=== PATIENT | male | born 1945 | race Caucasian/White ===

== ENCOUNTER 2020-12-30 15:48 | Inpatient (IN) | payer MEDICARE, SELFPAY ==
[2020-12-30] VITALS (11 sets, daily range): BP systolic 137–152; BP diastolic 68–102; PULSE 83–116; RESP 16–18; TEMP 36.6; O2SAT 89–98; BMI 25.8; BMI 23.1
--- NOTE | 2020-12-30 | IR_ITS ---
APPROVED REPORT Patient Location: [facility] Current Inspector: SEBASTIAN Umaña RT (R) PROCEDURES Left heart catheterization Left ventriculogram Selective coronary angiogram Drug-eluting stent deployment to the mid to distal left main artery extending into the proximal LAD - 1 stent to LM into LAD Drug-eluting stent deployment to the proximal to mid and distal LAD in a noncontiguous manner from the left main artery - 3 stents contiguous in LAD Drug-eluting stent deployment to the circumflex artery extending into the first obtuse marginal artery - 1 stent in ostia extending into OM1 Intravascular ultrasound of the left main artery and LAD INDICATION Acute inferior ST elevation myocardial infarction, Coronary artery disease, Informed consent was obtained prior to the procedure. COMPLICATIONS None Estimated Blood Loss: Less than 10 mls TECHNIQUE One percent lidocaine used to anesthetize the right anterior aspect of the wrist. The right radial artery was accessed via the Seldinger technique. A 6 Syriac sheath was placed in the right radial artery. 2.5 mg of verapamil, 800 mcg of nitroglycerin, 1mg Lidocaine and were given through the arterial sheath. A Poppa catheter was used to perform right coronary angiography and then left main coronary angiography. Choice PT extra-support wire was placed into the LAD and a 3 mm balloon was used to open the critical stenosis in the left main artery. Following this a 4 mm x 15 mm resolute Dayton stent was deployed at 20 antonia in the left main artery extending to the proximal LAD in order to immediately provide flow to the critical situation. The wire was placed into the distal LAD where predilatation was performed. A telescope guide support catheter was used to deliver a 2.75 x 38 mm resolute Dayton stent at 20 antonia. An additional 3 mm x 8 mm resolute Dayton stent was then placed proximal to this immediately adjacent to the first diagonal artery and deployed at 24 antonia. A 2.5 x 22 mm resolute Dayton stent was then placed distal to the 38 mm stent and deployed at 20 antonia. The balloon was brought back and dilated at 24 antonia up and down the LAD. Following this a 4.5 mm balloon was used to post dilate the left main artery stent. Choice PT extra-support wire was placed into the circumflex artery and first obtuse marginal artery where a 2 mm balloon was used to predilate the critical stenosis. Eventually a 2 mm x 22 mm resolute Rod stent was then placed in the left main artery extending into the circumflex artery and into the first obtuse marginal artery. This was deployed at 20 antonia. This was then postdilated with a 2.25 mm balloon. A 4.5 mm balloon was then placed back into the LAD left main artery to make sure none of the circumflex artery struts were impeding flow. Following this an intravascular ultrasound probe was advanced into the left main artery and LAD. An additional wire was placed back into the circumflex artery and a 2.25 mm compliant balloon was deployed at 20 antonia in the circumflex artery ostium in order to open the struts completely. A 5 mm x 12 mm noncompliant balloon was then placed into the left main artery extending into the LAD and deployed at 20 antonia to make sure none of the struts were encroaching upon the left main artery. After achieving excellent angiographic results the apparatus was removed the sheath was removed and hemostasis was achieved using TR banding patient was transferred to the postoperative stable addition ANGIOGRAPHIC RESULTS The left main artery Has a critical distal concentric 80% stenosis The left anterior descending artery Has a proximal concentric 80% stenosis between the large first diagonal artery and large first septal perforato
--- NOTE | 2020-12-30 15:52 | ECG_ITS ---
APPROVED REPORT Exam: Resting ECG HR:110 bpm ECG Measurements Heart Rate 110 AXES OH 164 P 54 QRSd 96 QRS 32 QT 332 T 123 QTc 449 Conclusion Sinus tachycardia Inferior-posterior infarct, possibly acute ACUTE [place] Consider right ventricular involvement in acute inferior infarct Abnormal ECG Electronically signed by : Jerome Goldberg, 12/30/2020 18:03:20
--- NOTE | 2020-12-30 15:56 | PC.NURSE ---
STEMI ALERT CALLED
--- NOTE | 2020-12-30 15:56 | PC.NURSE ---
PAGE TO CARDIOLOGY
--- NOTE | 2020-12-30 15:58 | PC.NURSE ---
RETURN CALL FROM CARDIOLOGY
--- NOTE | 2020-12-30 15:58 | HMH.EDCP ---
ED Disposition Clinical Impression: STEMI (ST elevation myocardial infarction) Qualifiers: Involved coronary artery: other inferior wall coronary artery Qualified Code(s): I21.19 - ST elevation (STEMI) myocardial infarction involving other coronary artery of inferior wall Disposition: Admitted As Inpatient Condition on Discharge: Serious Referrals: Rufus Sheehan [Primary Care Provider] - - Critical Care Critical Care Time: Yes Attestation: On , the high probability of a clinically significant, sudden or life threatening deterioration of the following system(s) required my full and direct attention, intervention and personal management. The time I documented below is in addition to time spent performing reported procedures but includes the following listed in this critical care notation. Total Critical Care Time: 30 Vital system(s) involved:: Circulatory Failure My critical care processes included: Assessment & monitoring of V/S, Initial and Re-exams, Data Review/Interpretation, Coordinating Care, Medication Orders and management Medical Decision Making - Medical Records Medical records reviewed: Yes: I reviewed the patient's medical records. - Chemo Inquiry Pt receiving controlled substance: No Orders (Tests/Meds): ED MEDICATIONS Discontinued Medications Generic Name Dose Route Start Last Admin Trade Name Freq PRN Reason Stop Dose Admin Heparin Sodium (Porcine) 8,100 unit 12/30/20 16:00 Heparin Sodium 5,000 Unit/Ml Vial IV 12/30/20 16:01 ONCE ONE ORDERS Category Date Time Status XR chest portable Stat Exams 12/30/20 16:02 Ordered Basic Metabolic Panel Stat Lab 12/30/20 16:02 Ordered Complete Blood Count Man Dif Stat Lab 12/30/20 16:01 Ordered Full Resp Panel w/COVID ([facility]) Routine Lab 12/30/20 16:02 Ordered Troponin I Q3H Lab 12/30/20 19:15 Ordered Troponin I Q3H Lab 12/30/20 22:15 Ordered Troponin I Stat Lab 12/30/20 16:01 Ordered - ECG Data Tracing #1 I reviewed this ECG and interpreted as documented below: Mild tachycardia to [address] elevation myocardial infarction with reciprocal depressions in V2 through V5. Ischemic changes: acute STEMI - Physician Consults Physician Consulted: Vinny Time: 16:11 Reason -: Cardiology Eval/Care Additional Consult: Wallace Reason -: Admission - ADAM Score for Stemi Age of Patient: 70-79 years old Heart Rate: 110-149 bpm Systolic Blood Pressure: 140-159 mmHg CHF Killip Class: I-No CHF Other Risk Factors: ST Segment Deviation Medical Decision Narrative: 75-year-old male who presents with acute chest pain. EKG demonstrates an inferior ST elevation myocardial infarction. Home Advisor was activated and he was given Brilinta as he took aspirin prior to arrival. He was also given 100/kg bolus of heparin. It was discussed with Dr. Casillas and admitted to Dr. Gonsalez for care after the Home Advisor. Patient remained stable throughout the duration of ED care and was admitted to the service. Chest Pain HPI - General Stated Complaint: L shoulder pain Chest discomfort Time Seen by Provider: 12/30/20 15:55 - History of Present Illness HPI narrative: Male has had chest pain into the left shoulder intermittently for the last 2 days. States that it was there when he woke up this morning he has had intermittent shortness of breath and states that the pain has been more persistent today. He took aspirin this morning 325 mg when he woke up and took it again this afternoon. He denies diaphoresis or nausea with the chest pain and that it self resolved last 2 days. Pain is 8 out of 10. [facility] History - Hepatitis A Screen Attestation statement:: This patient has been screened for Hepatitis A risk factors. ROS Obtained: Yes Systems reviewed as appropriate & no additional complaints Physical Exam - General General appearance: alert, in no apparent distress - Head Head exam: atraumatic, normocephalic - Eye Eye exa
--- NOTE | 2020-12-30 16:02 | XR_ITS ---
PROCEDURE: XR CHEST PORTABLE CLINICAL HISTORY: STEMI STEMI alert COMPARISON: No exams were available for comparison FINDINGS: The heart size is normal. There is some mild pulmonary venous prominence and there is some interstitial edema which may be due to acute cardiac decompensation. Overlying monitoring/defibrillator device present. No acute bony abnormalities. IMPRESSION: Minimal interstitial edema and mild pulmonary venous congestion with normal heart size which may be seen with acute cardiac decompensation Dictated by: Ramakrishna Conrad MD 12/30/2020 16:35 Ramakrishna Conrad MD in [place] 12/30/2020 16:35
[2020-12-30 16:07] LABS: MANUAL DIFFERENTIAL MANUAL DIFFERENTIAL (MANUAL DIFF)
[2020-12-30 16:10] LABS: Basophils # 0.1 K/mm3 (0-0.2); Basophils % 0.4 % (0.1-2.0); Eosinophils # 0.1 K/mm3 (0.0-0.4); Eosinophils % 1.1 % (0.1-12.0); Hematocrit 44.5 % (42.0-52.0); Hemoglobin 13.9 g/dL (14.1-18.0); Lymphocytes # 1.9 K/mm3 (0.7-4.5); Lymphocytes % 15.1 % (10-50); Mean Corpuscular HGB Conc 31.3 g/dL (31.8-35.4); Mean Corpuscular Hemoglobin 29.2 pg (27.0-31.2); Mean Corpuscular Volume 93.2 fl (80-94); Mean Platelet Volume 8.4 fl (7.4-10.4); Monocytes # 0.4 K/mm3 (0.1-1.0); Monocytes % 3.5 % (1.7-9.3); Neutrophils # 9.9 K/mm3 (1.8-7.8); Platelet Count 275 K/mm3 (142-424); Red Blood Count 4.77 M/mm3 (4.60-6.20); Red Cell Distribution Width 14.6 % (11.5-17.5); White Blood Count 12.3 K/mm3 (4.8-10.8)
--- NOTE | 2020-12-30 16:14 | PC.NURSE ---
TO VEST FINISHER PER STRETCHER
--- NOTE | 2020-12-30 16:16 | PC.NURSE ---
1613 PT TO HEADER SET UP OPERATOR
[2020-12-30 16:17] LABS: Adenovirus,PCR Not Detected (NotDetected); Anion Gap 14.2 mEq/L (5-15); Blood Urea Nitrogen 17 mg/dl (9-20); Bordetella Pertussis Not Detected (NotDetected); Calcium 9.7 mg/dl (8.4-10.2); Carbon Dioxide 25 mmol/L (22.0-30.0); Chlamydophila Pneumoniae, PCR Not Detected (NotDetected); Chloride 106 mmol/L (98-107); Coronavirus 19, PCR Not Detected (NotDetected); Coronavirus 229E Not Detected (NotDetected); Coronavirus NL63 Not Detected (NotDetected); Coronavirus OC43 Not Detected (NotDetected); Coronovirus HKU1,PCR Not Detected (NotDetected); Creatinine Clearance Estimated 54 mL/min (50-200); Estimated Glomerular Filt Rate 50 ml/min (>60); GFR (African American) 60 ML/MIN (>60); Glucose 306 mg/dl (74-100); Human Metapneumovirus Not Detected (NotDetected); Influenza A, PCR Not Detected (NotDetected); Influenza AH1, 2009 Not Detected (NotDetected); Influenza AH1, PCR Not Detected (NotDetected); Influenza AH3,PCR Not Detected (NotDetected); Influenza B, PCR Not Detected (NotDetected); Mycoplasma Pneumoniae, PCR Not Detected (NotDetected); Parainfluenza 1, PCR Not Detected (NotDetected); Parainfluenza 2, PCR Not Detected (NotDetected); Parainfluenza 3, PCR Not Detected (NotDetected); Parainfluenza 4, PCR Not Detected (NotDetected); Potassium 4.2 mmoL/L (3.5-5.1); Respiratory Syncytial Virus Not Detected (NotDetected); Rhinovirus/Enterovirus Not Detected (NotDetected); Sodium 141 mmol/L (136-145)
[2020-12-30 16:34] LABS: Troponin I 2.83 ng/ml (0.00-0.034)
[2020-12-30 16:58] LABS: Eosinophils % 1 % (0-3); Lymphocytes % 13 % (10-50); Monocytes % 5 % (2-9); Neutrophils % 78 % (42-76); Platelet Estimate Normal; RBC Morphology Normal; Total Cells Counted 100
[2020-12-30 18:07] LABS: Coronavirus 19 IgG Antibody Positive (Negative); Coronavirus 19 IgM Antibody Negative (Negative)
--- NOTE | 2020-12-31 07:32 | CA_ITS ---
APPROVED REPORT EXAM: Comprehensive 2D, Doppler, and color-flow Echocardiogram Superintendent Renting Managing: Kenyatta Oliveros RT(R) Ht: 5 ft 10 in Wt: 171lbs BSA: 1.95 BP: 115/56 mmHg Indications: CP, edema, hyperlipidemia, DM, SOB, CAD, cardiac cath yesterday with 5 stents placed, EF 20-25% on cath. 2D Dimensions LVOT 1.87 cm (M/F) 1.5-2.5 LVEF (Uriostegui's) 45.50 % M: 52 - 72 LV Volume 108.80 mL M: 62 - 150 LV Volume Index 55.79 mL/m2 M: 34 - 74 M-Mode Dimensions RVDd 2.31 cm (0.9-2.6) LA Diam 3.16 cm (1.9-4.0) LVDd 5.27 cm (3.5-5.7) Ao Diam 2.73 cm (2.0-3.7) LVDs 4.56 cm (3.5-5.7) IVSd 0.78 cm (0.6-1.1) PWd 0.78 cm (0.6-1.1) EF (Teich) 28.60% FS 13.50% EDV (Teich) 133.60 mL TAPSE 2.26 (<1.7) ESV (Teich) 95.40 mL LV Diastology E Decel Time 153.00 (160-240 msec) E/A Ratio 1.4 MED E' 6.40 (< 7 cm/sec) E'/MED E' Ratio 16.92 (>14) LAT E' 8.10 (<10 cm/sec) E/LAT E' Ratio 13.37 (>14) Aortic Valve LVOT Max 79.00 (70-110 cm/s) LVOT VTI 14.24 cm AoV Peak Roe. 168.00 (50-130 cm/s) AO Peak GR. 11.30 mmHg AO Mean GR. 5.60 (<5 mmHg) AO VTI 27.44 (18-25 cm) MOLLY (VTI) 1.43 (2.5-4.5 cm2) Mitral Valve MV E Max Roe. 108.00 (40-130 cm/s) MV A Velocity 75.00 (40-130 cm/s) E/A Ratio 1.45 MV Decel. Time 153.00 (160-240 ms) MV PHT 45.00 ms Left Ventricle Left atrium is mildly enlarged, left ventricle is normal size, mild concentric left ventricular hypertrophy, visually estimated ejection fraction 45 to 50% with no regional wall motion abnormality, endocardial surfaces are very poorly visualized. Grade 1 diastolic dysfunction seen without tissue Doppler evidence of left atrial pressure. Right Ventricle Right atrium and right ventricle are normal size and contractility. Aortic Valve Aortic valve is thickened and calcified without Doppler evidence of aortic stenosis, there is mild aortic insufficiency. Mitral Valve Mitral valve leaflets are minimally thickened, there is mild mitral regurgitation. Tricuspid Valve Tricuspid grossly normal, there is mild tricuspid regurgitation, tricuspid regurgitation jet close is inadequate for calculation of the right ventricular systolic pressure. Pulmonic Valve Pulmonic valve is poorly visualized. Great Vessels Aortic root is normal size. Pericardium No significant pericardial effusion noted. Conclusion 1. Mildly enlarged left atrium, normal left ventricular size, mild concentric left ventricular hypertrophy, visually estimated ejection fraction 45 to 50% with no obvious regional wall motion abnormality, endocardial surfaces are poorly visualized. Grade 1 diastolic dysfunction seen without tissue Doppler evidence of raise left atrial pressure. 2. Thickened and calcified aortic valve without Doppler evidence of aortic stenosis, there is mild aortic insufficiency. 3. Mild mitral and tricuspid regurgitation. 4. No significant pericardial effusion noted. Electronically signed by : John Ruiz, 12/31/2020 19:19:47
== END 2021-01-01 17:58 | disposition home or self-care (01) | DRG 246 ==
LOC: ER 12-31 07:30 → CATHLAB 01-16 08:51 → 2ND 01-16 08:55
PROVIDERS: Admitting Provider Family Medicine; Emergency Provider Student in an Organized Health Care Education/Training Program; PCP Family Medicine; Visit Provider Internal Medicine
PROC: 027237Z Dilation of Coronary Artery, Three Arteries with Four or More Drug-eluting Intraluminal Devices, Percutaneous Approach (ICD-10-PCS; principal; 2020-12-30 16:15)
DX: I21.19 ST elevation (STEMI) myocardial infarction involving other coronary artery of inferior wall (principal); I50.21 Acute systolic (congestive) heart failure; I42.9 Cardiomyopathy, unspecified; I11.9 Hypertensive heart disease without heart failure; E03.9 Hypothyroidism, unspecified; Z88.0 Allergy status to penicillin; E78.5 Hyperlipidemia, unspecified
CPT/HCPCS: 36415; 71045; 80048; 80053; 80061; 80076; 82962; 84484; 85007; 85014; 85018; 85025; 85048; 85049; 85347; 86328; 87581; 87633; 87798; 92928; 92929; 92941; 92978; 92979; 93005; 93306; 93458; 96365; 96375; 99152; 99153; 99284; C1725; C1769; C1874; C1876; C9600; C9601; C9606; J1644; Q9967

== ENCOUNTER 2021-01-14 10:35 | Outpatient (RCR) | payer MEDICARE, SELFPAY | END 2021-04-21 10:49 | disposition home or self-care (01) | LOC: PT 10:35 | PROVIDERS: Visit Provider Internal Medicine | DX: Z95.5 Presence of coronary angioplasty implant and graft (principal) | CPT/HCPCS: 93798 ==

== ENCOUNTER → 2021-04-25 15:03 | Outpatient (CLI) | payer MEDICARE, SELFPAY ==
[2021-04-25 16:45] LABS: Chloride 104 mmol/L (98-107)
[2021-04-25 16:46] LABS: Potassium 5.6 mmoL/L (3.5-5.1); Sodium 142 mmol/L (136-145)
[2021-04-25 16:49] LABS: Anion Gap 19.6 mEq/L (5-15); Blood Urea Nitrogen 22 mg/dl (9-20); Calcium 9.7 mg/dl (8.4-10.2); Carbon Dioxide 24 mmol/L (22.0-30.0); Estimated Glomerular Filt Rate 50 ml/min (>60); GFR (African American) 60 ML/MIN (>60); Glucose 166 mg/dl (74-100)
== END ==
PROVIDERS: Visit Provider Physician Assistant
DX: E78.2 Mixed hyperlipidemia (principal); I25.118 Atherosclerotic heart disease of native coronary artery with other forms of angina pectoris; I25.5 Ischemic cardiomyopathy; I50.22 Chronic systolic (congestive) heart failure; I51.9 Heart disease, unspecified
CPT/HCPCS: 36415; 80048

== ENCOUNTER → 2021-05-19 14:51 | Outpatient (CLI) | payer MEDICARE, SELFPAY ==
[2021-05-19 17:44] LABS: Anion Gap 16.7 mEq/L (5-15); Blood Urea Nitrogen 21 mg/dl (9-20); Calcium 9.3 mg/dl (8.4-10.2); Carbon Dioxide 25 mmol/L (22.0-30.0); Chloride 104 mmol/L (98-107); Estimated Glomerular Filt Rate 54 ml/min (>60); GFR (African American) 65 ML/MIN (>60); Glucose 159 mg/dl (74-100); Potassium 4.7 mmoL/L (3.5-5.1); Sodium 141 mmol/L (136-145)
== END ==
PROVIDERS: Visit Provider Nurse Practitioner Family
DX: E78.5 Hyperlipidemia, unspecified (principal); I25.10 Atherosclerotic heart disease of native coronary artery without angina pectoris; I42.9 Cardiomyopathy, unspecified; I50.20 Unspecified systolic (congestive) heart failure; I51.9 Heart disease, unspecified
CPT/HCPCS: 36415; 80048

== ENCOUNTER → 2021-11-25 14:58 | Outpatient (CLI) | payer MEDICARE, SELFPAY ==
[2021-11-25 16:03] LABS: Basophils # 0.1 K/mm3 (0-0.2); Basophils % 0.6 % (0.1-2.0); Eosinophils # 0.1 K/mm3 (0.0-0.4); Eosinophils % 1.6 % (0.1-12.0); Hematocrit 34.7 % (42.0-52.0); Hemoglobin 10.9 g/dL (14.1-18.0); Lymphocytes # 0.9 K/mm3 (0.7-4.5); Lymphocytes % 11.1 % (10-50); Mean Corpuscular HGB Conc 31.4 g/dL (31.8-35.4); Mean Corpuscular Hemoglobin 29.4 pg (27.0-31.2); Mean Corpuscular Volume 93.7 fl (80-94); Mean Platelet Volume 7.5 fl (7.4-10.4); Monocytes # 0.4 K/mm3 (0.1-1.0); Monocytes % 4.6 % (1.7-9.3); Neutrophils # 6.9 K/mm3 (1.8-7.8); Neutrophils % 82.1 % (37.0-80.0); Platelet Count 407 K/mm3 (142-424); White Blood Count 8.4 K/mm3 (4.8-10.8)
[2021-11-25 17:34] LABS: Chloride 105 mmol/L (98-107); Potassium 4.5 mmoL/L (3.5-5.1); Sodium 140 mmol/L (136-145)
[2021-11-25 17:37] LABS: Alanine Aminotransferase 15 U/L (12-78); Albumin Level 3.4 g/dl (3.5-5.0); Alkaline Phosphatase 102 U/L (38-126); Anion Gap 13.5 mEq/L (5-15); Aspartate Amino Transferase 14 U/L (17-59); Bilirubin,Direct 0.3 mg/dl (0.0-0.4); Bilirubin,Indirect 0.1 mg/dL (0.0-0.9); Bilirubin,Total 0.4 mg/dl (0.2-1.3); Bilirubin,Unconjugated 0.1 mg/dL (0.0-1.1); Blood Urea Nitrogen 22 mg/dl (9-20); Calcium 8.5 mg/dl (8.4-10.2); Carbon Dioxide 26 mmol/L (22.0-30.0); Estimated Glomerular Filt Rate 40 ml/min (>60); GFR (African American) 48 ML/MIN (>60); Glucose 94 mg/dl (74-100); Total Protein,Serum 6.3 g/dl (6.3-8.2)
[2021-11-25 17:53] LABS: Free T4 (Free Thyroxine) 1.93 ng/dl (0.78-2.19)
[2021-11-25 18:08] LABS: Thyroid Stimulating Hormone < 0.02 uIU/mL (0.465-4.68)
[2021-11-26 09:01] LABS: Chol/HDL Ratio 3.2 (1-3.5); Cholesterol 99 mg/dl (140-200); HDL Cholesterol 31 mg/dl (40-60); Triglycerides 51 mg/dl (30-150); VLDL Cholesterol 10 mg/dL (0-40)
[2021-11-26 09:11] LABS: Hemoglobin A1C 6.4 % (4.0-6.0)
[2021-11-26 09:12] LABS: Direct LDL Cholesterol 49.79 mg/dL (100-129)
[2021-11-26 09:32] LABS: Prostate Specific Ag Screen 0.2 ng/ml (0.0-4.0)
== END ==
PROVIDERS: PCP Family Medicine; Visit Provider Nurse Practitioner Family
DX: R06.00 Dyspnea, unspecified; I25.118 Atherosclerotic heart disease of native coronary artery with other forms of angina pectoris; I11.0 Hypertensive heart disease with heart failure; I50.22 Chronic systolic (congestive) heart failure; I25.5 Ischemic cardiomyopathy; E11.9 Type 2 diabetes mellitus without complications; E78.2 Mixed hyperlipidemia; R53.83 Other fatigue; I63.9 Cerebral infarction, unspecified; Z12.5 Encounter for screening for malignant neoplasm of prostate; Z79.84 Long term (current) use of oral hypoglycemic drugs
CPT/HCPCS: 36415; 80048; 80061; 80076; 83036; 84439; 84443; 85025; G0103

== ENCOUNTER → 2021-11-27 13:40 | Outpatient (CLI) | payer MEDICARE, SELFPAY | PROVIDERS: Visit Provider Urology | DX: R35.0 Frequency of micturition (principal); B95.2 Enterococcus as the cause of diseases classified elsewhere | CPT/HCPCS: 87086; 87088; 87186 ==

== ENCOUNTER → 2021-12-08 12:20 | Outpatient (CLI) | payer MEDICARE, SELFPAY ==
--- NOTE | 2021-12-08 12:22 | CA_ITS ---
APPROVED REPORT EXAM: Comprehensive 2D, Doppler, and color-flow Echocardiogram Manager Port: Melita Reed CRT Ht: 6 ft 0 in Wt: 143lbs BSA: 1.85 BP: 110/66 mmHg Indications: Congestive Heart Failure, CAD, Hyperlipidemia, Cardiomyopathy, Hypertension/HDD, Stents, ef 40-45 on echo 12/30/20 2D Dimensions LVOT 2.10 cm (M/F) 1.5-2.5 LA Volume 19.80 mL LA Volume Index 10.76 mL/m2 (M/F) 16-34 M-Mode Dimensions RVDd 2.11 cm (0.9-2.6) LA Diam 3.12 cm (1.9-4.0) LVDd 4.32 cm (3.5-5.7) Ao Diam 4.16 cm (2.0-3.7) LVDs 3.31 cm (3.5-5.7) IVSd 0.94 cm (0.6-1.1) PWd 0.67 cm (0.6-1.1) EF (Teich) 47.00% FS 23.40% EDV (Teich) 84.00 mL TAPSE 2.05 (<1.7) ESV (Teich) 44.50 mL LV Diastology E Decel Time 223.00 (160-240 msec) E/A Ratio 0.7 MED E' 7.00 (< 7 cm/sec) MED A' 12.20 cm/s E'/MED E' Ratio 10.97 (>14) LAT E' 7.80 (<10 cm/sec) LAT A' 10.90 cm/s E/LAT E' Ratio 9.85 (>14) Aortic Valve LVOT Max 107.00 (70-110 cm/s) LVOT VTI 21.07 cm AoV Peak Roe. 146.00 (50-130 cm/s) AI PHT 396.00 ms AO Peak GR. 8.50 mmHg AO Mean GR. 6.30 (<5 mmHg) AO VTI 35.56 (18-25 cm) MOLLY (VTI) 2.05 (2.5-4.5 cm2) Mitral Valve MV E Max Roe. 77.00 (40-130 cm/s) MV A Velocity 113.00 (40-130 cm/s) E/A Ratio 0.68 MV Decel. Time 223.00 (160-240 ms) MV PHT 65.00 ms Pulmonary Valve PV Peak Velocity 72.00 (50-150 cm/s) Tricuspid Valve TR P. Velocity 281.00 cm/s RAP Estimate 10.00 mmHg RVSP 41.70 mmHg Left Ventricle Left atrium is mildly enlarged, left ventricle is normal size, mild concentric left ventricular hypertrophy, estimated ejection fraction 50%, there is moderate hypokinesis involving the inferior basal wall. Grade 1 diastolic dysfunction seen without tissue Doppler evidence of raise left atrial pressure. Right Ventricle Right atrium and right ventricle are normal size and contractility. Aortic Valve Aortic valve is minimally thickened and fibrosed there is no aortic stenosis, there is trace aortic insufficiency. Mitral Valve Mitral valve is grossly normal, there is mild mitral regurgitation. Tricuspid Valve Tricuspid grossly normal, there is mild tricuspid regurgitation, tricuspid regurgitation jet velocity is inadequate for calculation of the right ventricular systolic pressure. Pulmonic Valve Pulmonic valve is poorly visualized. Great Vessels Aortic root is normal size. Inferior vena cava is poorly visualized. Pericardium No significant pericardial effusion noted. Conclusion 1. Mildly enlarged left atrium, normal left ventricular size, mild concentric left ventricular hypertrophy, estimated ejection fraction 50% with segmental wall motion abnormality described above, grade 1 diastolic dysfunction seen without tissue Doppler evidence of raise left atrial pressure. 2. Thickened and calcified aortic valve without aortic stenosis, there is trace aortic insufficiency. 3. Mild mitral and tricuspid regurgitation. 4. No significant pericardial effusion noted. 5. Inferior vena cava is poorly visualized. Electronically signed by : John Ruiz MD 12/08/2021 20:41:31
--- NOTE | 2021-12-08 12:22 | CA_ITS ---
FINAL REPORT TECHNIQUE: Color Doppler, duplex Doppler and cisse scale sonography of the bilateral neck arterial vasculature was performed. Velocities were measured in the carotid arteries. Stenosis evaluation based on the validated velocity criteria. CLINICAL HISTORY: bilateral carotid bruitHTN,HLD,CAD FINDINGS: The peak systolic velocity of the right common carotid artery is 89 cm/s. The peak systolic velocity of the right internal carotid artery is 93 cm/s and end diastolic velocity 25 cm/s. The ICA/CCA ratio is 1.45. A mild to moderate amount of plaque is present. The right external carotid artery is patent. The right vertebral artery is patent with antegrade flow. The peak systolic velocity of the left common carotid artery is 98.5 cm/s. The peak systolic velocity of the left internal carotid artery is 90 cm/s and end diastolic velocity 22 cm/s. The ICA/CCA ratio is 1.28. A mild to moderate amount of plaque is present. The left external carotid artery is patent.The left vertebral artery is patent with antegrade flow. IMPRESSION: Less than 50% bilateral carotid stenoses. Bilateral patent vertebral arteries with antegrade flow. If indicated, CTA or MRA could further evaluate. Reviewed, Interpreted and Dictated by Noam Amado III, MD Transcribed by Cecilia Lloyd Authenticated by Noam Amado III, MD on 12/08/2021 04:23:55 PM [facility]
--- NOTE | 2021-12-08 12:30 | NM_ITS ---
APPROVED REPORT Exam: Nuclear Stress Test Indication: CAD, H/O IN, HTN, DM, HYPERLIPIDEMIA, FM HX., C.P., SOB, SYNCOPE, FATIGUE Patient Location: Outpatient Stress Tech: [facility] Tech:Danica Montelongo, ARRT, RT (R)(N) Ht: 5 ft 10 in Wt: 143 lbs HR: 75 bpm BP: 128/65 mmHg BSA: 1.81 m2 BMI: 20.5 History: CAD, H/O IN, HTN, DM, HYPERLIPIDEMIA, FM HX., C.P., SOB, SYNCOPE, FATIGUE Procedure: Patient received a 0.4 mg of intravenous Lexiscan, resting heart rate 75 bpm, resting blood pressure 128/65 mmHg, with Lexiscan maximum heart rate achived was 102 bpm which is Less than 85 % of the maximum predicted heart rate and blood pressure was 118/64 mmHg. With Lexiscan, patient denied any complaint of chest pain. Electrocardiogram Resting electrocardiogram shows sinus rhythm, with Lexiscan there is less than 1.[address] segment depression noted from the baseline EKG. The EKG portion of the Lexiscan is nondiagnostic. Cardiac Stress and Resting SPECT Images: Cardiac Stress and Resting SPECT images were obtained using technetium 99m Myoview 29.9 mCi stress and 9.56 mCi at rest. Gated SPECT for analysis of segmental wall motion and calculation of of the ejection fraction is also done. Cardiac stress and resting SPECT images show partial reversible defect involving the inferior and posterior basal wall consistent with mixed ischemia and scar, in addition there is lateral wall reversible ischemia seen. Computer derived ejection fraction is 50% with moderate inferior and posterior basal wall. Right ventricle is mildly enlarged with normal contractility. Conclusion: 1. The EKG portion of the Lexiscan is nondiagnostic. 2. Scintigraphic evidence of mixed ischemia and scar involving the inferior and posterior basal wall, in addition there is reversible ischemia involving the lateral wall. Computer derived ejection fraction 50% with segmental wall motion abnormality described above, right ventricle is mildly enlarged with normal contractility. 3. Abnormal Lexiscan Myoview study. Electronically signed by : John Ruiz MD 12/08/2021 21:32:16
--- NOTE | 2021-12-08 14:21 | HMH.ITSHM ---
Current Home Medications as stated by this patient Blake Ayala or service center representative. []TOLTERODINE SACUBITRIL ISOSORBIDE EMPAGLIFLOZIN CLOPIDOGREL BISOPROLOL ATORVASTATIN METFORMIN LEVOTHYROXINE ASA
--- NOTE | 2021-12-08 14:33 | CA_ITS ---
APPROVED REPORT Exam: Pharmacologic Technologist: Tameka Carey, Ht: 5 ft 0 in Wt: 143 lbs BSA: 1.62 m2 HR: 77 bpm BP: 128/65 mmHg Medical History Medications: Levothyroxine,,,,, Aspirin,,,,, Metformin,,,,, Atorvastatin,,,,, Plavix,,,,, BisOPROLOL Fumarate,,,,, JaRDiance,,,,, Tolterodine,,,,, EnTRESTO,,,,, Isosorbide Monoitrate ER,,,,, Stress Test Details Test: LEXISCAN HR Resting HR: 75 bpm Max Heart Rate (APMHR): 146 bpm Max HR Achieved: 104 bpm Target HR (85% APMHR): 124 bpm % of APMHR: 71 Recovery HR: 72 bpm BP Resting BP: 128/65 mmHg Max BP: 128/65 mmHg Recovery BP: 108.0/54.0 mmHg ECG Resting ECG: NSR, Inf. Lat ST Scooping Clinical Reason for Termination: Completed Protocol Exercise duration: 04:01 min Highest Stage Achieved: Exercise capacity: 1.0 METs Stress ECG Conclusion Symptoms: None Arrhythmias/Ectopy: None ST-T Changes: <1.5mm ST Segment changes Conclusion: Non-Diagnostic Electronically signed by : John Ruiz MD 12/08/2021 21:27:06
== END ==
PROVIDERS: PCP Family Medicine; Visit Provider Physician Assistant
DX: R06.00 Dyspnea, unspecified; I20.8 Other forms of angina pectoris; I50.22 Chronic systolic (congestive) heart failure; I11.0 Hypertensive heart disease with heart failure; E11.9 Type 2 diabetes mellitus without complications; E78.2 Mixed hyperlipidemia; I25.5 Ischemic cardiomyopathy; R53.83 Other fatigue; R09.89 Other specified symptoms and signs involving the circulatory and respiratory systems; Z79.84 Long term (current) use of oral hypoglycemic drugs
CPT/HCPCS: 78452; 93017; 93306; 93880; A9502; J2785

== ENCOUNTER → 2021-12-23 13:27 | Outpatient (CLI) | payer MEDICARE, SELFPAY ==
[2021-12-23 13:59] LABS: Coronavirus 19, PCR Not Detected (NotDetected); Influenza A, PCR Not Detected (NotDetected); Influenza B, PCR Not Detected (NotDetected)
[2021-12-23 14:27] LABS: Basophils # 0.1 K/mm3 (0-0.2); Basophils % 0.7 % (0.1-2.0); Eosinophils # 0.2 K/mm3 (0.0-0.4); Hematocrit 35.8 % (42.0-52.0); Hemoglobin 11.3 g/dL (14.1-18.0); Lymphocytes # 1.2 K/mm3 (0.7-4.5); Lymphocytes % 13.4 % (10-50); Mean Corpuscular HGB Conc 31.5 g/dL (31.8-35.4); Mean Corpuscular Hemoglobin 30.7 pg (27.0-31.2); Mean Corpuscular Volume 97.6 fl (80-94); Mean Platelet Volume 7.9 fl (7.4-10.4); Monocytes # 0.4 K/mm3 (0.1-1.0); Monocytes % 3.8 % (1.7-9.3); Neutrophils # 7.4 K/mm3 (1.8-7.8); Neutrophils % 80.1 % (37.0-80.0); Platelet Count 325 K/mm3 (142-424); Red Blood Count 3.66 M/mm3 (4.60-6.20); Red Cell Distribution Width 15.2 % (11.5-17.5); White Blood Count 9.2 K/mm3 (4.8-10.8)
[2021-12-23 14:55] LABS: Blood Urea Nitrogen 24 mg/dl (9-20); Calcium 9.3 mg/dl (8.4-10.2); Carbon Dioxide 29 mmol/L (22.0-30.0); Chloride 105 mmol/L (98-107); Estimated Glomerular Filt Rate 50 ml/min (>60); GFR (African American) 60 ML/MIN (>60); Glucose 119 mg/dl (74-100); Sodium 138 mmol/L (136-145)
== END ==
PROVIDERS: Physician Assistant; Visit Provider Internal Medicine
DX: E03.9 Hypothyroidism, unspecified (principal); E11.9 Type 2 diabetes mellitus without complications; E78.5 Hyperlipidemia, unspecified; I11.9 Hypertensive heart disease without heart failure; I25.10 Atherosclerotic heart disease of native coronary artery without angina pectoris; I42.9 Cardiomyopathy, unspecified; R06.00 Dyspnea, unspecified; R53.83 Other fatigue; R94.39 Abnormal result of other cardiovascular function study; Z01.812 Encounter for preprocedural laboratory examination; Z11.52 Encounter for screening for COVID-19; Z79.84 Long term (current) use of oral hypoglycemic drugs
CPT/HCPCS: 36415; 80048; 85025; C9803; U0003; U0005

== ENCOUNTER 2021-12-24 08:28 | Day surgery (SDC) | payer MEDICARE, SELFPAY ==
[2021-12-24] VITALS (15 sets, daily range): BP systolic 121–172; BP diastolic 65–81; PULSE 68–102; RESP 16–18; TEMP 36.9; O2SAT 96–100; BMI 28.3
--- NOTE | 2021-12-24 07:26 | IR_ITS ---
APPROVED REPORT Patient Location: Outpatient Smoking Pipe Liner: SEBASTIAN Cormier RT (R) PROCEDURES Left heart catheterization Left ventriculogram Selective coronary angiogram INDICATION Known coronary artery disease, Abnormal Myoview, Atypical angina pectoris Informed consent was obtained prior to the procedure. COMPLICATIONS None Estimated Blood Loss: Less than 10 mls TECHNIQUE One percent lidocaine used to anesthetize the right anterior aspect of the wrist. The right radial artery was accessed via the Seldinger technique. A 6 Beninese sheath was placed in the right radial artery. 2.5 mg of verapamil, 800 mcg of nitroglycerin, 1mg Lidocaine and 5000 U Heparin were given through the arterial sheath. The papa catheter was also used to perform left heart catheterization, left ventriculogram and selective coronary angiogram. At the end of the procedure the sheath was removed good hemostasis was achieved using Traclet band, patient was transferred to the postop holding area in stable condition. ANGIOGRAPHIC RESULTS The left main artery Has a stent throughout its course which is widely patent free of in-stent restenosis with excellent proximal distal transitioning. The distal portion transitions into the LAD. The left anterior descending artery Has a widely patent stent originating from the left main artery which then extends throughout its mid segment in a contiguous manner. The stent is free of in-stent restenosis with excellent distal transitioning into the mid LAD. The remaining LAD is free of disease. A large first diagonal artery originates from the proximal LAD and is widely patent free of in-stent restenosis The circumflex artery Is a nondominant vessel and has a stent bifurcating off the left main artery. The proximal portion of the stent has an eccentric 80% stenosis and is 2.25 mm in diameter. It supplies a moderate-sized first obtuse marginal artery and 2 additional smaller second and third obtuse marginal arteries The right coronary artery Is a dominant vessel ostially occluded. The distal vessel fills via a nice collateral network from the distal LAD and septal perforators. The CARRLILO ventriculogram reveals Normal 65% The left ventricular end-diastolic pressure 30 mmHg IMPRESSION Coronary disease as described above Widely patent stents in the left main artery extending into the proximal and mid LAD as described above. The LAD is a large vessel which collateralizes the distal right coronary artery via a dense healthy collateral network Chronically occluded right coronary artery which fills via dense and healthy collaterals primarily from the LAD Severe disease in a small nondominant circumflex artery which still has KEELY-3 flow Normal ejection fraction Moderate to severe elevated LVEDP PLAN 1. At this point I recommend medical management. The Myoview does not demonstrate any significant ischemia and fairly well correlates to the patient's anatomy. While there is disease in the circumflex artery I would recommend medical management for this vessel. Stenting this vessel would require additional manipulation in the left main artery. When the previous complex bifurcating revascularization occurred this was during an acute ST elevation myocardial infarction therefore aggressive maneuvers were undertaken. At this point I do not believe it is dunbar to jeopardize the left main artery supplying this large LAD which also collateralizes the distal dominant right coronary artery in order to revascularize a small nondominant circumflex artery which likely has no impact on survival benefit. Furthermore I doubt this vessel is producing the atypical angina. 2. I recomme
== END 2021-12-24 15:43 | disposition home or self-care (01) ==
LOC: CATHLAB 08:29
PROVIDERS: PCP Family Medicine; Visit Provider Internal Medicine
DX: E03.9 Hypothyroidism, unspecified (principal); E11.9 Type 2 diabetes mellitus without complications; E78.5 Hyperlipidemia, unspecified; I11.0 Hypertensive heart disease with heart failure; I25.5 Ischemic cardiomyopathy; I50.22 Chronic systolic (congestive) heart failure; R06.00 Dyspnea, unspecified; R94.39 Abnormal result of other cardiovascular function study; I25.118 Atherosclerotic heart disease of native coronary artery with other forms of angina pectoris; Z79.84 Long term (current) use of oral hypoglycemic drugs; I25.82 Chronic total occlusion of coronary artery; Z79.899 Other long term (current) drug therapy
CPT/HCPCS: 93458; 99152; C1725; C1769; J1644; Q9967

== ENCOUNTER → 2021-12-29 10:08 | Outpatient (CLI) | payer MEDICARE, SELFPAY ==
[2021-12-29 11:12] LABS: Blood Urea Nitrogen 31 mg/dl (9-20); Calcium 9.3 mg/dl (8.4-10.2); Carbon Dioxide 27 mmol/L (22.0-30.0); Chloride 105 mmol/L (98-107); Estimated Glomerular Filt Rate 46 ml/min (>60); GFR (African American) 55 ML/MIN (>60); Glucose 143 mg/dl (74-100); Sodium 140 mmol/L (136-145)
== END ==
PROVIDERS: Visit Provider Physician Assistant
DX: I25.118 Atherosclerotic heart disease of native coronary artery with other forms of angina pectoris (principal); I50.22 Chronic systolic (congestive) heart failure; R06.00 Dyspnea, unspecified
CPT/HCPCS: 36415; 80048

== ENCOUNTER → 2022-01-02 11:52 | Outpatient (CLI) | payer MEDICARE, SELFPAY | PROVIDERS: Visit Provider Urology | DX: N39.0 Urinary tract infection, site not specified (principal); Z11.52 Encounter for screening for COVID-19 | CPT/HCPCS: C9803; U0003; U0005 ==

== ENCOUNTER → 2022-01-28 14:02 | Outpatient (CLI) | payer MEDICARE, SELFPAY | PROVIDERS: Visit Provider Urology | DX: N39.0 Urinary tract infection, site not specified (principal); N40.1 Benign prostatic hyperplasia with lower urinary tract symptoms | CPT/HCPCS: C9803; U0003; U0005 ==

== ENCOUNTER 2022-01-30 11:12 | Day surgery (SDC) | payer MEDICARE, SELFPAY ==
[2022-01-27 14:35] VITALS: BMI 21.5
[2022-01-30 11:37] VITALS: BP 119/59; PULSE 72; RESP 18; TEMP 36.6; O2SAT 99
[2022-01-30 11:54] LABS: POC Glucose,Bedside 143 (70-110)
[2022-01-30 12:55] VITALS: BP 122/64; PULSE 77; RESP 16; TEMP 36.4; O2SAT 97
[2022-01-30 13:15] VITALS: BP 122/64; PULSE 77; RESP 16; TEMP 36.1; O2SAT 97
--- NOTE | 2022-01-30 14:01 | HMH.OPNOTE ---
Date of procedure: 01/30/22 Pre-op Diagnosis:: Lower urinary tract symptoms with incomplete bladder emptying Post-op Diagnosis:: BPH with lower urinary tract symptoms and incomplete bladder emptying Procedure performed:: Cystoscopy Surgeon:: Rajinder Suh MD Anesthesia: local Estimated blood loss (mL): 0 Clinical Note:: 76-year-old white male with lower urinary tract symptoms and postvoid residual of 274 cc. At his last office visit he was prescribed tamsulosin and he was told to stop the Detrol I will. Today's med list indicates he is on oxybutynin and tamsulosin. Operative findings:: Patient with a large amount of sediment in his bladder making cystoscopy bit difficult due to poor visualization. There did not appear to be significant bladder outlet obstructive changes in the bladder. The prostate did not appear to be as large as I would expect but there was some moderate hyperplasia. Operative note:: Patient taken to the cystoscopy suite after informed consent was obtained. On the stretcher he was prepped and draped in the standard surgical fashion and 2% lidocaine placed into the urethra and the urethra clamped for 5 minutes. After 5 minutes the flexible cystoscope introduced into the urethral meatus and passed to the prostatic urethra and into the bladder without difficulty. The bladder was examined and there was a lot of sediment in the bladder making it difficult to visualize the mucosal mccurdy but close inspection did not reveal any mucosal abnormalities. Some mild trabeculation was noted but no cellules or diverticula were present. The scope was retroflexed but no median lobe was noted. The scope was pulled back to the prostatic urethra which did not appear to be significantly enlarged but there was some moderate by lobar hyperplasia. The prostate was 2 cm in length. The scope removed patient tolerated procedure well. In the recovery room we discussed the findings today. He is still on oxybutynin I would like him to stop the oxybutynin and continue the tamsulosin. He states he did receive some benefit with the tamsulosin and can tell if he misses a day. We will see him back in 2 weeks with a repeat bladder scan off of the oxybutynin and on the tamsulosin. We did discuss possible UroLift procedure if his symptoms do not improve. Most significant involved was the large amount of sediment in his bladder. A hypotonic bladder is also a possibility for this patient. Condition: stable Disposition: same day Specimens:: None Complications:: None
== END 2022-01-30 13:15 | disposition home or self-care (01) ==
LOC: OUTP 11:13
PROVIDERS: PCP Family Medicine; Visit Provider Urology
DX: N40.1 Benign prostatic hyperplasia with lower urinary tract symptoms (principal); R33.9 Retention of urine, unspecified; I25.10 Atherosclerotic heart disease of native coronary artery without angina pectoris; E78.5 Hyperlipidemia, unspecified; I10 Essential (primary) hypertension; I25.2 Old myocardial infarction; Z88.0 Allergy status to penicillin; Z79.82 Long term (current) use of aspirin; Z79.84 Long term (current) use of oral hypoglycemic drugs; Z79.899 Other long term (current) drug therapy
CPT/HCPCS: 52000; 82962

== ENCOUNTER 2022-01-31 19:50 | Inpatient (IN) | payer MEDICARE, SELFPAY ==
--- NOTE | 2022-01-31 19:48 | ECG_ITS ---
APPROVED REPORT Exam: Resting ECG HR:85 bpm ECG Measurements Heart Rate 85 AXES SD 172 P 55 QRSd 85 QRS 50 QT 337 T 73 QTc 379 Conclusion SINUS RHYTHM NORMAL ECG UNCONFIRMED REPORT Electronically signed by : Jerome Goldberg MD 02/03/2022 21:14:29
[2022-01-31 19:50] VITALS: BP 120/70; PULSE 82; RESP 18; TEMP 38.6; O2SAT 98; BMI 21.5
--- NOTE | 2022-01-31 20:01 | CT_ITS ---
PROCEDURE INFORMATION: Exam: CT Head Without Contrast Exam date and time: 01/31/2022 8:05 PM Age: 76 years old Clinical indication: Altered mental status/memory loss; Confusion or disorientation; Additional info: Altered mental status fever TECHNIQUE: Imaging protocol: Computed tomography of the head without contrast. Radiation optimization: All CT scans at this facility use at least one of these dose optimization techniques: automated exposure control; mA and/or kV adjustment per patient size (includes targeted exams where dose is matched to clinical indication); or iterative reconstruction. Other technique: STROKE PROTOCOL was implemented. COMPARISON: No relevant prior studies available. FINDINGS: Brain: There is no acute cortical infarction, intracranial hemorrhage or mass.There is moderate diffuse heterogeneity of the white matter, most consistent with microangiopathy. Cerebral ventricles: The ventricles appear mildly enlarged, but not out of proportion to the degree of parenchymal volume loss. Paranasal sinuses: Visualized sinuses are unremarkable. No fluid levels. Mastoid air cells: Visualized mastoid air cells are well aerated. Bones/joints: Unremarkable. No acute fracture. Soft tissues: Unremarkable. Vasculature: Atherosclerosis. IMPRESSION: No acute cerebral infarction or intracranial hemorrhage. ASSESSMENT: ASPECTS ([place] Stroke Program Early CT Score) is 10.
--- NOTE | 2022-01-31 20:01 | XR_ITS ---
PROCEDURE INFORMATION: Exam: XR Chest Exam date and time: 01/31/2022 8:13 PM Age: 76 years old Clinical indication: Fever TECHNIQUE: Imaging protocol: XR of the chest. Views: 1 view. COMPARISON: CR XR CHEST PORTABLE 12/30/2020 4:11 PM FINDINGS: Lungs: No focal lung consolidation although there does appear to be bronchial wall thickening. Pleural spaces: No pleural effusion. Heart/Mediastinum: No cardiac enlargement. There appears to be a coronary arterial stent. Bones/joints: No significant skeletal degeneration for age. IMPRESSION: No acute findings.
[2022-01-31 20:10] LABS: Basophils # 0.1 K/mm3 (0-0.2); Basophils % 1.4 % (0.1-2.0); Eosinophils # 0.1 K/mm3 (0.0-0.4); Eosinophils % 0.8 % (0.1-12.0); Hematocrit 39.6 % (42.0-52.0); Hemoglobin 12.9 g/dL (14.1-18.0); Lymphocytes # 0.5 K/mm3 (0.7-4.5); Lymphocytes % 6.7 % (10-50); Mean Corpuscular HGB Conc 32.5 g/dL (31.8-35.4); Mean Corpuscular Hemoglobin 30.1 pg (27.0-31.2); Mean Corpuscular Volume 92.8 fl (80-94); Mean Platelet Volume 7.9 fl (7.4-10.4); Monocytes # 0.2 K/mm3 (0.1-1.0); Monocytes % 3.4 % (1.7-9.3); Neutrophils % 87.8 % (37.0-80.0); Platelet Count 219 K/mm3 (142-424); Red Blood Count 4.27 M/mm3 (4.60-6.20); Red Cell Distribution Width 14.6 % (11.5-17.5); White Blood Count 6.8 K/mm3 (4.8-10.8)
[2022-01-31 20:14] LABS: Lactic Acid 1.4 mmol/L (0.7-2.1)
[2022-01-31 20:17] LABS: MANUAL DIFFERENTIAL MANUAL DIFFERENTIAL (MANUAL DIFF)
--- NOTE | 2022-01-31 20:27 | HMH.EDAMS ---
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 transplanted heart: [place] heart Associated angina: without angina Qualified Code(s): I25.10 - Atherosclerotic heart disease of [place] coronary artery without angina pectoris Disposition: Admitted As Inpatient Condition on Discharge: Fair - Critical Care Critical Care Time: No Attestation: On 01/31/22, the high probability of a clinically significant, sudden or life threatening deterioration of the following system(s) required my full and direct attention, intervention and personal management. The time I documented below is in addition to time spent performing reported procedures but includes the following listed in this critical care notation. Medical Decision Making - Medical Records Medical records reviewed: Yes: I reviewed the patient's medical records. - Chemo Inquiry Pt receiving controlled substance: No Vital Signs: 01/31/22 19:50 Temperature 101.4 F H Temperature Source Rectal Pulse Rate [Apical] 82 Respiratory Rate 18 Blood Pressure [Right Arm] 120/70 Blood Pressure Mean [Right Arm] 86 Blood Pressure Source [Right Arm] Automatic Cuff Blood Pressure Position [Right Arm] Sitting 02 Sat by Pulse Oximetry 98 Oxygen Delivery Method Room Air - Lab Data Lab results reviewed: Yes: I reviewed the patient's lab results. Lab Results 01/31/22 19:58: Lactate 1.4 01/31/22 20:00: WBC 6.8, RBC 4.27 L, Hgb 12.9 L, Hct 39.6 L, MCV 92.8, MCH 30.1, MCHC 32.5, RDW 14.6, Plt Count 219, MPV 7.9, Neut % (Auto) 87.8 H, Lymph % (Auto) 6.7 L, [place] % (Auto) 3.4, Eos % (Auto) 0.8, Baso % (Auto) 1.4, Neut # (Auto) 6.0, Lymph # (Auto) 0.5 L, [place] # (Auto) 0.2, Eos # (Auto) 0.1, Baso # (Auto) 0.1, Total Counted 100, Neutrophils % (Manual) 81 H, Band Neutrophils % 8.0, Lymphocytes % (Manual) 11, Platelet Estimate Normal, RBC Morphology Normal, ESR 43 H 01/31/22 20:34: Urine Color Red, Urine Appearance Cloudy, Urine pH 6.0, Ur Specific [place] 1.010, Urine Protein Trace, Urine Glucose (UA) 3+, Urine Ketones Negative, Urine Blood 3+, Urine Nitrate Negative, Urine Bilirubin Negative, Urine Urobilinogen 0.2, Ur Leukocyte Esterase 2+ A, Urine RBC Tntc, Urine WBC 20-50, Ur Squamous Epith Cells Occasional, Urine Bacteria Trace 01/31/22 20:34: Sodium 136, Potassium 4.1, Chloride 102, Carbon Dioxide 24, Anion Gap 14.1, BUN 25 H, Creatinine 1.50 H, Estimated Creat Clear 42, Estimated GFR 46 L, Est GFR ( Amer) 55 L, Glucose 127 H, Calcium 9.4, Total Bilirubin 0.3, AST 26, ALT 23, Alkaline Phosphatase 95, Troponin I < 0.01, C-Reactive Protein 35.0 H, Total Protein 7.3, Albumin 3.9, Globulin 3.4 H, Albumin/Globulin Ratio 1.1, Procalcitonin 0.362, TSH < 0.02 L, Thyroxine (T4) 14.7 H 01/31/22 20:34: NT-Pro-B Natriuret Pep 3710 H 01/31/22 20:51: SARS-CoV-2 (PCR) Not detected, Influenza A Untype (PCR) Not detected, Influenza Type B (PCR) Not detected Result diagrams: 01/31/22 20:00 01/31/22 20:34 Orders (Tests/Meds): ED MEDICATIONS Generic Name Dose Route Start Last Admin Trade Name Freq PRN Reason Stop Dose Admin Sodium Chloride
--- NOTE | 2022-01-31 20:29 | CT_ITS ---
PROCEDURE INFORMATION: Exam: CT Abdomen And Pelvis Without Contrast Exam date and time: 01/31/2022 8:46 PM Age: 76 years old Clinical indication: Fever and other: Urinary retention TECHNIQUE: Imaging protocol: Computed tomography of the abdomen and pelvis without contrast. Radiation optimization: All CT scans at this facility use at least one of these dose optimization techniques: automated exposure control; mA and/or kV adjustment per patient size (includes targeted exams where dose is matched to clinical indication); or iterative reconstruction. COMPARISON: CR XR CHEST PORTABLE 01/31/2022 8:13 PM FINDINGS: Lungs: The lung bases are clear. Diaphragm: There is a small hiatal hernia. Liver: There are no focal liver lesions. Gallbladder and bile ducts: Cholelithiasis. Pancreas: The pancreas is unremarkable. Spleen: Calcified splenic granulomas. Adrenal glands: Right adrenal gland is mildly enlarged without focal mass identified. Kidneys and ureters: There is bilateral hydronephrosis with marked dilatation of the renal pelves and ureters. There are no renal calculi. Stomach and bowel: There is no evidence of intestinal obstruction. Extensive diverticulosis in the sigmoid colon. Appendix: There are surgical clips in the region of the cecum possibly due to prior appendectomy. Intraperitoneal space: Unremarkable. No free air. No significant fluid collection. Vasculature: There is no evidence of an infrarenal abdominal aortic aneurysm. There is marked atherosclerotic calcification. Lymph nodes: Unremarkable. No enlarged lymph nodes. Urinary bladder: The urinary bladder is decompressed by Mahan catheter. Air is seen within the bladder. There appears to be thickening of the anterior wall. There is stranding along the anterior margin of the urinary bladder. Reproductive: Unremarkable as visualized. Bones/joints: Unremarkable. No acute fracture. Soft tissues: Unremarkable. IMPRESSION: 1. Marked hydronephrosis and hydroureter bilaterally. The urinary bladder is not well assessed since it is decompressed by a Mahan catheter. There is soft tissue stranding about the urinary bladder particularly anterior margin possibly due to cystitis or chronic outlet obstruction. 2. Cholelithiasis.
--- NOTE | 2022-01-31 20:30 | PC.NURSE ---
Dr. Vidal on phone with [facility]
[2022-01-31 20:35] LABS: Lymphocytes % 11 % (10-50); Neutrophils % 81 % (42-76); Platelet Estimate Normal; RBC Morphology Normal; Total Cells Counted 100
[2022-01-31 20:40] LABS: Microscopic, Urine URINE MICROSCOPIC (MICROSCOPIC)
[2022-01-31 20:42] LABS: Appearance,Urine CLOUDY (Clear); Bilirubin,Urine Negative (Negative); Blood, Urine 3+ (Negative); Color,Urine RED (Yellow); Glucose,Urine (UA) 3+ (Negative); Ketones,Urine Negative (Negative); Leukocyte Esterase,Urine 2+ (Negative); Nitrate,Urine Negative (Negative); Protein,Urine TRACE (Negative); Urobilinogen,Urine 0.2 EU/dl (0.2)
[2022-01-31 20:47] LABS: Erythrocyte Sedimentation Rate 43 mm/hr (0-20)
[2022-01-31 20:50] LABS: Alanine Aminotransferase 23 U/L (12-78); Albumin Level 3.9 g/dl (3.5-5.0); Albumin/Globulin Ratio 1.1 (1.1-1.8); Alkaline Phosphatase 95 U/L (38-126); Anion Gap 14.1 mEq/L (5-15); Aspartate Amino Transferase 26 U/L (17-59); Bilirubin,Total 0.3 mg/dl (0.2-1.3); Blood Urea Nitrogen 25 mg/dl (9-20); Calcium 9.4 mg/dl (8.4-10.2); Carbon Dioxide 24 mmol/L (22.0-30.0); Chloride 102 mmol/L (98-107); Creatinine Clearance Estimated 42 mL/min (50-200); Estimated Glomerular Filt Rate 46 ml/min (>60); GFR (African American) 55 ML/MIN (>60); Globulin 3.4 g/dL (1.3-3.2); Glucose 127 mg/dl (74-100); Potassium 4.1 mmoL/L (3.5-5.1); Sodium 136 mmol/L (136-145); Total Protein,Serum 7.3 g/dl (6.3-8.2)
[2022-01-31 20:55] LABS: Bacteria,Urine Trace /lpf; RBC,Urine TNTC #/hpf (0-3); Squamous Epithelial Cell,Urine Occasional #/hpf (0-5); WBC,Urine 20-50 #/hpf (0-3)
[2022-01-31 21:01] LABS: NT Pro Brain Natriuretic Pep. 3710 pg/mL (0-125)
[2022-01-31 21:05] LABS: Troponin I < 0.01 ng/ml (0.00-0.034)
[2022-01-31 21:08] LABS: Coronavirus 19, PCR Not Detected (NotDetected); Influenza A, PCR Not Detected (NotDetected); Influenza B, PCR Not Detected (NotDetected)
[2022-01-31 21:09] LABS: Procalcitonin 0.362 ng/mL (0.0-2.0); T4 (Thyroxine) 14.7 ug/dl (5.53-11.0)
[2022-01-31 21:13] VITALS: BMI 20.9
[2022-01-31 21:23] LABS: Thyroid Stimulating Hormone < 0.02 uIU/mL (0.465-4.68)
[2022-01-31 22:39] VITALS: BP 109/61; PULSE 67; RESP 18; TEMP 37.1; O2SAT 97
--- NOTE | 2022-01-31 22:54 | PC.NURSE ---
Patients friend called to notify that her phone number is [phone], Friends name is Dunia Celis
--- NOTE | 2022-01-31 22:55 | PC.NURSE ---
patient up to floor via wheelchair @ this time
[2022-01-31 23:02] VITALS: BP 114/59; PULSE 64; RESP 13; TEMP 36.7; O2SAT 97
[2022-01-31 23:23] VITALS: PULSE 60
[2022-01-31 23:44] LABS: Troponin I 0.01 ng/ml (0.00-0.034)
[2022-02-01] VITALS (10 sets, daily range): BP systolic 97–152; BP diastolic 44–81; PULSE 57–96; RESP 15–20; TEMP 36.7–38.6; O2SAT 94–98
[2022-02-01 02:37] LABS: Troponin I 0.01 ng/ml (0.00-0.034)
[2022-02-01 06:47] LABS: POC Glucose,Bedside 94 (70-110)
--- NOTE | 2022-02-01 07:48 | PC.NURSE ---
late entry - Since admitted to floor no significant changes. Pt has been alert and oriented x 4 since admission. Pt did have a temp during vitals - medicated per MAR. Retake was 99.0 F. Mahan draining dark colored urine, with adequate urine output. IV fluids infusing per order. Call light in reach. Bed alarm on for safety. No other complaints or needs at this time.
[2022-02-01 08:22] LABS: Basophils % 0.5 % (0.1-2.0); Eosinophils % 0.2 % (0.1-12.0); Hematocrit 36.6 % (42.0-52.0); Hemoglobin 11.9 g/dL (14.1-18.0); Lymphocytes # 0.5 K/mm3 (0.7-4.5); Lymphocytes % 11.2 % (10-50); Mean Corpuscular HGB Conc 32.6 g/dL (31.8-35.4); Mean Corpuscular Hemoglobin 30.4 pg (27.0-31.2); Mean Corpuscular Volume 93.3 fl (80-94); Mean Platelet Volume 7.7 fl (7.4-10.4); Monocytes # 0.1 K/mm3 (0.1-1.0); Monocytes % 2.3 % (1.7-9.3); Neutrophils % 85.9 % (37.0-80.0); Platelet Count 178 K/mm3 (142-424); Red Blood Count 3.93 M/mm3 (4.60-6.20); Red Cell Distribution Width 14.5 % (11.5-17.5); White Blood Count 4.6 K/mm3 (4.8-10.8)
[2022-02-01 08:29] LABS: MANUAL DIFFERENTIAL MANUAL DIFFERENTIAL (MANUAL DIFF)
[2022-02-01 08:30] LABS: Anion Gap 13.8 mEq/L (5-15); Blood Urea Nitrogen 24 mg/dl (9-20); Calcium 8.7 mg/dl (8.4-10.2); Carbon Dioxide 24 mmol/L (22.0-30.0); Chloride 103 mmol/L (98-107); Creatinine Clearance Estimated 47 mL/min (50-200); Estimated Glomerular Filt Rate 54 ml/min (>60); GFR (African American) 65 ML/MIN (>60); Glucose 130 mg/dl (74-100); Magnesium 1.4 mg/dl (1.6-2.3); Potassium 3.8 mmoL/L (3.5-5.1); Sodium 137 mmol/L (136-145)
--- NOTE | 2022-02-01 11:22 | P.CONPHA_ITS ---
[facility] VTE Monitoring - Patient Demographics Admission date: 01/31/22 Report Date: 02/01/22 Time: 11:22 Allergies/Adverse Reactions: Patient Allergies Penicillins Allergy (Verified 01/30/22 11:24) Height: 1.78 m Weight: 66.27 kg Patient Problems: Current Active Problems Hypothyroidism (Acute) Diabetes mellitus (Chronic) Acute delirium (Acute) UTI (urinary tract infection) (Acute) Renal insufficiency (Acute) Hydronephrosis (Acute) CAD (coronary artery disease) (Chronic) - VTE Risk Labs: VTE Related Lab Results Hgb 11.9 g/dL (14.1-18.0) L 02/01/22 07:48 Hct 36.6 % (42.0-52.0) L 02/01/22 07:48 Plt Count 178 K/mm3 (142-424) 02/01/22 07:48 BUN 24 mg/dl (9-20) H 02/01/22 07:48 Creatinine 1.30 mg/dl (0.66-1.25) H 02/01/22 07:48 Estimated Creat Clear 47 mL/min (50-200) 02/01/22 07:48 VTE Score: 3 VTE Risk Level: Low Risk - Prophylaxis VTE Prophylaxis Ordered?: Yes Types of VTE Prophylaxis: TEDS Knee High Location of Applied Device: Bilateral Lower Extremeties
[2022-02-01 11:24] LABS: Lymphocytes % 8 % (10-50); Monocytes % 1 % (2-9); Neutrophils % 91 % (42-76); Total Cells Counted 100
[2022-02-01 11:25] LABS: Platelet Estimate Normal; RBC Morphology Normal
--- NOTE | 2022-02-01 11:26 | HMH.PHAINT ---
MEDICATION RECONCILIATION COMPLETED ON PATIENT USING EXTERNAL FILL HISTORY FROM PHARMACY AND CARDIOLOGY OFFICE NOTES. -DIANNA DIGGS, SAMUELD
[2022-02-01 12:02] LABS: POC Glucose,Bedside 148 (70-110)
--- NOTE | 2022-02-01 14:11 | HMH.HP ---
*Admission Date: 01/31/22 *Chief complaint: Fever, altere MS *History of present illness: 76-year-old male who was brought to the emergency department when his girlfriend noticed that he was somewhat confused. He also had a fever. When he arrived to the ER he was noted to have a dirty urine sediment and some hematuria. Of note on January 30 he had a cystoscopy for bladder outlet obstruction was thought to have a hypotonic bladder with moderate prostate hyperplasia. No antibiotic prescribed at that point and was no evidence of infection at that point. Patient was admitted to the floor for IV antibiotics, awaiting results of urine culture and Mahan catheter was placed with a large residual urine volume. [facility] History I have reviewed the patient's past medical history: Yes Medical History: Reports:: Coronary Artery Disease, Diabetes Mellitus Type 2, Hyperlipidemia, Hypertension, Myocardial Infarction Denies:: Cancer, Diabetes Mellitus Type 1, Internal Pacemaker, MRSA, Seizures *Have you ever received a pneumonia vaccine?: Yes *Have you received a flu vaccine this season?: Yes Other Medical History: Reports: Arthritis, Hypothyroidism, Liver Disease Other Surgeries: Yes: Appendectomy, Cardiac Catheterization, Colonoscopy, Coronary Stent. No: Pacemaker Amputation: No Fractures: No - *Social History Smoking Status: Never smoker Alcohol Intake: current Alcohol Intake Frequency:: holidays/special occasions only Substance Use Type: denies use *Occupational Status:: retired Housing: house Household Members: significant other *Travel in the last 8 weeks: None Family Hx:: No significant family history Review of Systems - *Neurologic Reports confusion, Denies dizziness, Denies localized weakness, Denies headache(s), Denies seizure-like activity Meds Home Medications Medication Instructions Recorded Confirmed Type Levothyroxine Sodium 150 mcg PO DAILY 12/30/20 01/31/22 History [Levothyroxine 150mcg (0.15mg) Tab] Metformin HCl [Metformin 1000mg 1,000 mg PO BIDWMEAL 12/30/20 02/01/22 History Tablets] bisoprolol fumarate 5 mg tablet 5 mg PO DAILY tab 12/29/21 01/31/22 History Aspirin [Aspirin 81mg EC Tab] 81 mg PO DAILY 01/30/22 01/31/22 History Atorvastatin Calcium [Lipitor 40mg 40 mg PO HS 01/30/22 01/31/22 History Tab] Clopidogrel Bisulfate [Plavix] 75 mg PO DAILY 01/30/22 01/31/22 History Sacubitril/Valsartan [Entresto] 1 tab PO BID 01/30/22 01/31/22 History Sitagliptin Phosphate [Januvia 100 mg PO DAILY 01/30/22 01/31/22 History 100mg tablet] Tamsulosin HCl 0.4 mg PO HS 01/30/22 02/01/22 History Cetirizine HCl [Zyrtec 10mg Tab*] 10 mg PO DAILY 01/31/22 01/31/22 History Empagliflozin [Jardiance] 25 mg PO DAILY 01/31/22 01/31/22 History Furosemide [Furosemide 20mg Tab*] 20 mg PO DAILY 01/31/22 01/31/22 History Spironolactone 50 mg PO DAILY 01/31/22 01/31/22 History Allergies Allergy/AdvReac Type Severity Reaction Status Date / Time Penicillins Allergy Verified 01/30/22 11:24 Exam Vital signs and Labs for Last 24 Hours: Temp Pulse Resp BP Pulse Ox 100.0 F H 81 18 122/81 94 L 02/01/22 12:00 02/01/22 12:00 02/01/22 12:00 02/01/22 12:00 02/01/22 12:00 Laboratory Results - last 24 hr 01/31/22 19:58: Lactate 1.4 01/31/22 20:00: WBC 6.8, RBC 4.27 L, Hgb 12.9 L, Hct 39.6 L, MCV 92.8, MCH 30.1, MCHC 32.5, RDW 14.6, Plt Count 219, MPV 7.9, Neut % (Auto) 87.8 H, Lymph % (Auto) 6.7 L, [place] % (Auto) 3.4, Eos % (Auto) 0.8, Baso % (Auto) 1.4, Neut # (Auto) 6.0, Lymph # (Auto) 0.5 L, [place] # (Auto) 0.2, Eos # (Auto) 0.1, Baso # (Auto) 0.1, Total Counted 100, Neutrophils % (Manual) 81 H, Band Neutrophils % 8.0, Lymphocytes % (Manual) 11, Platelet Estimate Normal, RBC Morphology Normal, ESR 43 H 01/31/22 20:34: Urine Color Red, Urine Appearance Cloudy, Urine pH 6.0, Ur Specific [place] 1.010, Urine Protein Trace, Urine Glucose (UA) 3+, Urine Ketones Negative, Urine Blood 3+, Urine Nitrate Negative, Urine B
[2022-02-01 17:13] LABS: POC Glucose,Bedside 104 (70-110)
--- NOTE | 2022-02-01 18:10 | PC.NURSE ---
Patient had fever of 100.3. Tylenol given per prn order nd rechecked. Patient stated he felt better and was not visibly shaking but fever was still high, 101.5. Dr. Goldberg paged and informed. Ibuprofen one time dose given and tylenol order modified. Patient stated he felt better and temperature 98.3. Mahan d/c'd and patient had been able to urinate twice as well as 2 bowel movements. Patient very weak but able to ambulate to bathroom and back to chair for a couple of hours. VS stable and no complaints noted. Patient remained alert and oriented and on room air during shift.
[2022-02-02] VITALS: BP 126/76; PULSE 62; PULSE 70; RESP 18; TEMP 36.8; O2SAT 97
[2022-02-02 04:00] VITALS: BP 112/57; PULSE 60; PULSE 63; RESP 14; TEMP 37; O2SAT 95
[2022-02-02 04:47] VITALS: BMI 21.3
[2022-02-02 06:54] LABS: Basophils % 0.1 % (0.1-2.0); Eosinophils % 0.5 % (0.1-12.0); Hematocrit 34.5 % (42.0-52.0); Hemoglobin 11.3 g/dL (14.1-18.0); Lymphocytes # 0.8 K/mm3 (0.7-4.5); Lymphocytes % 18.6 % (10-50); Mean Corpuscular HGB Conc 32.7 g/dL (31.8-35.4); Mean Corpuscular Hemoglobin 30.6 pg (27.0-31.2); Mean Corpuscular Volume 93.6 fl (80-94); Mean Platelet Volume 7.8 fl (7.4-10.4); Monocytes # 0.2 K/mm3 (0.1-1.0); Monocytes % 4.1 % (1.7-9.3); Neutrophils # 3.2 K/mm3 (1.8-7.8); Neutrophils % 76.7 % (37.0-80.0); Platelet Count 158 K/mm3 (142-424); Red Blood Count 3.69 M/mm3 (4.60-6.20); Red Cell Distribution Width 14.6 % (11.5-17.5); White Blood Count 4.1 K/mm3 (4.8-10.8)
[2022-02-02 07:05] LABS: Alanine Aminotransferase 26 U/L (12-78); Albumin Level 2.8 g/dl (3.5-5.0); Alkaline Phosphatase 66 U/L (38-126); Anion Gap 10.7 mEq/L (5-15); Aspartate Amino Transferase 36 U/L (17-59); Blood Urea Nitrogen 26 mg/dl (9-20); Calcium 8.4 mg/dl (8.4-10.2); Carbon Dioxide 21 mmol/L (22.0-30.0); Chloride 105 mmol/L (98-107); Creatinine Clearance Estimated 48 mL/min (50-200); Estimated Glomerular Filt Rate 54 ml/min (>60); GFR (African American) 65 ML/MIN (>60); Globulin 2.8 g/dL (1.3-3.2); Glucose 96 mg/dl (74-100); Potassium 3.7 mmoL/L (3.5-5.1); Sodium 133 mmol/L (136-145); Total Protein,Serum 5.6 g/dl (6.3-8.2)
[2022-02-02 07:12] LABS: Bilirubin,Total < 0.1 mg/dl (0.2-1.3)
[2022-02-02 08:00] VITALS: BP 111/53; PULSE 73; RESP 16; TEMP 36.7; O2SAT 96
--- NOTE | 2022-02-02 08:15 | HMH.DCSUM ---
General - General Admission date:: 01/31/22 Discharge date: 02/02/22 HPI HPI: 76-year-old male who was brought to the emergency department when his girlfriend noticed that he was somewhat confused. He also had a fever. When he arrived to the ER he was noted to have a dirty urine sediment and some hematuria. Of note on January 30 he had a cystoscopy for bladder outlet obstruction was thought to have a hypotonic bladder with moderate prostate hyperplasia. No antibiotic prescribed at that point and was no evidence of infection at that point. Patient was admitted to the floor for IV antibiotics, awaiting results of urine culture and Mahan catheter was placed with a large residual urine volume. Hospital Course Hospital Course: Patient was admitted, blood and urine cultures were obtained and patient was started on ceftriaxone. He did well, and defervesced very nicely and felt much better and his mental status issues cleared. I reviewed Dr. Suh's notes which revealed significant bladder dysfunction, but no evidence of stone obstruction or BPH over moderate amounts which did not really seem to account for the bladder function issues. We discontinued patient's Mahan catheter yesterday and he has done well with urination but does have quite a bit of incontinence which is somewhat new for him. Had no further fevers. Interestingly, urine cultures have been negative. Blood cultures are also negative. This morning patient has normal vital signs, labs have normalized and he feels better. At this point if there is really nothing were doing for him in the acute care setting, so my plan is to discharge him home. We will give him another dose of ceftriaxone before discharge and he will begin cefdinir 300 mg twice daily for 1 week tomorrow. I encouraged him to keep his appointment with Dr. Suh for reevaluation of his bladder dysfunction. I am unsure however about the etiology of his fever. His chest x-ray was clear and his white counts are unremarkable, this certainly could have been a viral process and I encouraged him to reach out to his primary care physician in [place] if he has further fevers or obviously he is welcome to come back and see us here. Objective Vital signs: Temp Pulse Resp BP Pulse Ox 98.6 F 63 14 112/57 L 95 02/02/22 04:00 02/02/22 04:00 02/02/22 04:00 02/02/22 04:00 02/02/22 04:00 no acute distress - *Routine HEENT Exam Head: Present: normocephalic Eye: Present: EOMI, PERRL ENT: Present: mucous membranes moist - *Routine Neck Exam Present: supple - *Routine Respiratory Exam Present: CTA bilaterally - *Routine Cardiovascular Exam Present: RRR - *Routine Abdominal Exam Present: soft, normoactive bowel sounds. Absent: tenderness - *Routine Extremities Exam Absent: cyanosis, clubbing, edema - *Routine Skin Exam Present: warm. Absent: rash - Detailed Eye Exam Eyelids: Bilateral normal inspection Results Labs on day of discharge: Labs from last 24 hours 02/02/22 02/02/22 02/01/22 06:12 06:12 16:59 WBC 4.1 L RBC 3.69 L Hgb 11.3 L Hct 34.5 L MCV 93.6 MCH 30.6 MCHC 32.7 RDW 14.6 Plt Count 158 MPV 7.8 Neut % (Auto) 76.7 Lymph % (Auto) 18.6 [place] % (Auto) 4.1 Eos % (Auto) 0.5 Baso % (Auto) 0.1 Neut # (Auto) 3.2 Lymph # (Auto) 0.8 [place] # (Auto) 0.2 Eos # (Auto) 0.0 Baso # (Auto) 0.0 Total Counted Neutrophils % (Manual) Lymphocytes % (Manual) Monocytes % (Manual) Platelet Estimate RBC Morphology Sodium 133 L Potassium 3.7 Chloride 105 Carbon Dioxide 21 L Anion Gap 10.7 BUN 26 H Creatinine 1.30 H Estimated Creat Clear 48 Estimated GFR 54 L Est GFR ( Amer) 65 Glucose 96 D POC Glucose 104 Calcium 8.4 Magnesium Total Bilirubin < 0.1 L AST 36 D ALT 26 Alkaline Phosphatase 66 Total Protein 5.6 L Al
--- NOTE | 2022-02-02 08:30 | PC.NURSE ---
LATE ENTRY - PT HAS BEEN A&O X 4, ANSWERING QUESTIONS APPROPRIATELY. NO ACUTE EPISODES OVER NIGHT. PT HAS REMAINED AFEBRILE THIS SHIFT. PT RESTED WELL. IV INFUSING PER ORDER, IV ATBX ADMINISTERED PER ORDER. PT HAS HAD A COUPLE EPISODES OF URINARY INCONTINENCE THIS SHIFT. PT STATES BY THE TIME HE CALLS OUT HE IS ALREADY URINATING. PT HAS HAD NO OTHER COMPLAINTS VOICED. CALL LIGHT IN REACH.
--- NOTE | 2022-02-05 12:10 | CARE MANAGER ---
Called and spoke with patient regarding post discharge status. Patient states that he remains a little weak, but otherwise is feeling better. 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 Suh. Patient has no known needs at this time.
== END 2022-02-02 12:08 | disposition home or self-care (01) | DRG 690 ==
LOC: ER 20:21 → 2ND 22:26
PROVIDERS: Admitting Provider Internal Medicine Adolescent Medicine; Emergency Provider Emergency Medicine; Visit Provider Internal Medicine Adolescent Medicine
DX: N39.0 Urinary tract infection, site not specified (principal); I25.10 Atherosclerotic heart disease of native coronary artery without angina pectoris; E11.9 Type 2 diabetes mellitus without complications; E78.5 Hyperlipidemia, unspecified; I10 Essential (primary) hypertension; I25.2 Old myocardial infarction; Z95.5 Presence of coronary angioplasty implant and graft; E03.9 Hypothyroidism, unspecified; M19.90 Unspecified osteoarthritis, unspecified site; N28.9 Disorder of kidney and ureter, unspecified; N13.30 Unspecified hydronephrosis; Z79.84 Long term (current) use of oral hypoglycemic drugs; N40.1 Benign prostatic hyperplasia with lower urinary tract symptoms; R39.14 Feeling of incomplete bladder emptying
CPT/HCPCS: 52000; 36415; 70450; 71045; 74176; 80048; 80053; 81001; 82962; 83605; 83735; 83880; 84145; 84436; 84443; 84484; 85007; 85025; 85651; 86140; 87040; 87086; 87088; 87186; 93005; 99285; C9803; J0696; U0003; U0005

== ENCOUNTER → 2022-02-19 13:52 | Outpatient (CLI) | payer MEDICARE, SELFPAY ==
--- NOTE | 2022-02-19 13:55 | CT_ITS ---
FINAL REPORT CLINICAL HISTORY: hydronephrosis COMPARISON: January 31, 2022 FINDINGS: Axial CT images of the abdomen and pelvis were obtained without intravenous contrast. Coronal reformatted images were also obtained.This study was performed with techniques to keep radiation doses as low as reasonably achievable (ALARA). Individualized dose reduction techniques using automated exposure control or adjustment of mA and/or kV according to the patient's size were employed. Abdomen: There is mild bibasilar atelectasis. There is no evidence of renal stone. There is moderate to severe bilateral hydronephrosis and hydroureter which is stable. There are multiple gallstones within the gallbladder. The liver, spleen and pancreas have an unremarkable, unenhanced appearance. No mass or adenopathy is seen. Pelvis: The appendix is not seen which is consistent with history of appendectomy. There are scattered descending and sigmoid diverticula. There is urinary bladder wall thickening with adjacent stranding which is felt to be inflammatory. There is no evidence of ureteral stone. IMPRESSION: Moderate to severe bilateral hydronephrosis and hydroureter, stable. Other stable findings. Reviewed, Interpreted and Dictated by Noam Amado III, MD Transcribed by Rajani Jones Authenticated and [facility]
== END ==
PROVIDERS: PCP Family Medicine; Visit Provider Urology
DX: N13.30 Unspecified hydronephrosis (principal)
CPT/HCPCS: 74176

== ENCOUNTER → 2022-11-09 15:07 | Outpatient (CLI) | payer MEDICARE, SELFPAY ==
[2022-11-09 15:52] LABS: Basophils # 0.1 K/mm3 (0-0.2); Basophils % 0.4 % (0.1-2.0); Eosinophils # 0.2 K/mm3 (0.0-0.4); Eosinophils % 1.9 % (0.1-12.0); Hematocrit 36.2 % (42.0-52.0); Hemoglobin 11.3 g/dL (14.1-18.0); Lymphocytes # 1.3 K/mm3 (0.7-4.5); Lymphocytes % 10.3 % (10-50); Mean Corpuscular HGB Conc 31.1 g/dL (31.8-35.4); Mean Corpuscular Hemoglobin 28.7 pg (27.0-31.2); Mean Corpuscular Volume 92.4 fl (80-94); Mean Platelet Volume 7.5 fl (7.4-10.4); Monocytes # 0.6 K/mm3 (0.1-1.0); Monocytes % 5.1 % (1.7-9.3); Neutrophils # 10.3 K/mm3 (1.8-7.8); Neutrophils % 82.3 % (37.0-80.0); Platelet Count 356 K/mm3 (142-424); Red Blood Count 3.92 M/mm3 (4.60-6.20); Red Cell Distribution Width 14.7 % (11.5-17.5); White Blood Count 12.5 K/mm3 (4.8-10.8)
[2022-11-09 16:15] LABS: Chloride 106 mmol/L (98-107); Sodium 141 mmol/L (136-145)
[2022-11-09 16:17] LABS: Bilirubin,Unconjugated 0.1 mg/dL (0.0-1.1); Blood Urea Nitrogen 26 mg/dl (9-20); Estimated Glomerular Filt Rate 35 ml/min (>60); GFR (African American) 42 ML/MIN (>60)
[2022-11-09 16:18] LABS: Alanine Aminotransferase 13 U/L (12-78); Albumin Level 3.7 g/dl (3.5-5.0); Alkaline Phosphatase 88 U/L (38-126); Aspartate Amino Transferase 17 U/L (17-59); Bilirubin,Direct 0.3 mg/dl (0.0-0.4); Bilirubin,Indirect 0.1 mg/dL (0.0-0.9); Bilirubin,Total 0.4 mg/dl (0.2-1.3); Calcium 8.7 mg/dl (8.4-10.2); Carbon Dioxide 25 mmol/L (22.0-30.0); Chol/HDL Ratio 2.1 (1-3.5); Cholesterol 95 mg/dl (140-200); Glucose 90 mg/dl (74-100); HDL Cholesterol 46 mg/dl (40-60); Magnesium 1.3 mg/dl (1.6-2.3); Total Protein,Serum 6.9 g/dl (6.3-8.2); Triglycerides 47 mg/dl (30-150); VLDL Cholesterol 9 mg/dL (0-40)
[2022-11-09 16:29] LABS: Direct LDL Cholesterol 42.64 mg/dL (100-129)
[2022-11-09 16:36] LABS: Free T4 (Free Thyroxine) 1.32 ng/dl (0.78-2.19)
== END ==
PROVIDERS: PCP Family Medicine; Visit Provider Nurse Practitioner
DX: E11.69 Type 2 diabetes mellitus with other specified complication (principal); E78.2 Mixed hyperlipidemia; I50.22 Chronic systolic (congestive) heart failure; R00.0 Tachycardia, unspecified; R06.00 Dyspnea, unspecified; R07.89 Other chest pain; I63.9 Cerebral infarction, unspecified; I11.0 Hypertensive heart disease with heart failure; Z79.84 Long term (current) use of oral hypoglycemic drugs
CPT/HCPCS: 36415; 80048; 80061; 80076; 83735; 84439; 84443; 85025

== ENCOUNTER → 2023-02-16 15:13 | Outpatient (CLI) | payer MEDICARE, SELFPAY ==
[2023-02-16 15:47] LABS: Basophils # 0.1 K/mm3 (0-0.2); Basophils % 0.5 % (0.1-2.0); Eosinophils # 0.2 K/mm3 (0.0-0.4); Hematocrit 34.6 % (42.0-52.0); Hemoglobin 10.4 g/dL (14.1-18.0); Lymphocytes # 1.3 K/mm3 (0.7-4.5); Lymphocytes % 11.9 % (10-50); Mean Corpuscular HGB Conc 30.1 g/dL (31.8-35.4); Mean Corpuscular Hemoglobin 28.6 pg (27.0-31.2); Mean Corpuscular Volume 95.1 fl (80-94); Mean Platelet Volume 8.1 fl (7.4-10.4); Monocytes # 0.5 K/mm3 (0.1-1.0); Monocytes % 4.2 % (1.7-9.3); Neutrophils # 9.2 K/mm3 (1.8-7.8); Neutrophils % 81.5 % (37.0-80.0); Platelet Count 446 K/mm3 (142-424); Red Blood Count 3.64 M/mm3 (4.60-6.20); Red Cell Distribution Width 15.4 % (11.5-17.5); White Blood Count 11.3 K/mm3 (4.8-10.8)
[2023-02-16 16:16] LABS: Anion Gap 15.3 mEq/L (5-15); Blood Urea Nitrogen 24 mg/dl (9-20); Calcium 8.7 mg/dl (8.4-10.2); Carbon Dioxide 27 mmol/L (22.0-30.0); Chloride 104 mmol/L (98-107); Estimated Glomerular Filt Rate 37 ml/min (>60); GFR (African American) 45 ML/MIN (>60); Glucose 86 mg/dl (74-100); Magnesium 1.6 mg/dl (1.6-2.3); Potassium 4.3 mmoL/L (3.5-5.1); Sodium 142 mmol/L (136-145)
[2023-02-16 16:34] LABS: Free T4 (Free Thyroxine) 1.07 ng/dl (0.78-2.19)
--- NOTE | 2023-04-29 19:42 | PC.NURSE ---
medical records sent to [facility].
== END ==
PROVIDERS: PCP Family Medicine; Visit Provider Nurse Practitioner
DX: E11.69 Type 2 diabetes mellitus with other specified complication (principal); E78.2 Mixed hyperlipidemia; I50.22 Chronic systolic (congestive) heart failure; R00.0 Tachycardia, unspecified; R07.89 Other chest pain; Z79.84 Long term (current) use of oral hypoglycemic drugs
CPT/HCPCS: 36415; 80048; 83735; 84439; 84443; 85025